=== PATIENT | male | born 1955 | race Two or more races ===

== ENCOUNTER → 2025-03-25 09:46 | Outpatient (REF) | payer MEDICARE, SELFPAY ==
--- OUTSIDE RECORDS SUMMARY | 2025-03-23 13:30 | XMS_ITS | Encounter Summary ---
Author Organization [facility] Address [address] [place] [address] Care Team Providers Care Reproduction Technician Name Role Phone Kenji Lacey MD Primary Care Provider [phone] Reason for Visit * Imaging (Routine) - Authorized Specialty Diagnoses / Procedures Referred By Contac t Referred To Contact Diagnoses Bilateral leg edema Procedures Vascular US duplex lower extremity venous insufficiency bilateral Vascular US duplex lower extremity venous insufficiency bilateral Kenji Lacey MD [address] [place] [id number] Phone: tel: fax: [facility] Referral ID Status Reason Start Date Expiration Date V isits Requested Visits Authorized [id number] Authorized 12/31/2024 12/31/2025 1 1 Encounter Details Date Type Department Care Team (Latest Contact Info) Description 03/23/2025 1:30 PM EST Ancillary Procedure [facility] [address] Jose Guadalupe [address] [place] [phone] Bilateral leg edema Social History Tobacco Use Types Packs/Day Years Used Date Smoking Tobacco: Never Smokeless Tobacco: Never Alcohol Use Standard Drinks/Week Comments Yes 0 (1 standard drink = 0.6 oz pur e alcohol) Sex and Gender Information Value Date Recorded Sex Assigned at Male 07/04/2024 9:23 AM EDT Legal Sex Male 2:21 AM EST Gender Identity Male 07/04/2024 9:23 AM EDT Sexual Orientation Straight 07/04/2024 9: 23 AM EDT documented as of this encounter Plan of Treatment Upcoming Encounters Date Type Department Care Team (Late st Contact Info) Description 07/13/2025 9:30 AM EDT Office Visit General Surgery [facility] [address] [place] [phone] Molina Bernabe MD [address] [place] [phone] documented as of this encounter Procedures Procedure Name Priority Date/Time Associated Diagnosis Comments VAS US DUPLEX LOWER EXT VENOUS INSUFFICIENCY BILATERAL Routine 03/23/2025 2:26 PM EST Bilateral leg edema documented in this encounter Results * Vascular US duplex lower extremity venous insufficiency bilateral (03/23/2025 2:26 PM EST) Left GSK lisseth 0.22 cm CV VAS LAB Left GSDC lisseth 0.15 cm CV VAS LAB Left GSMT lisseth 0.32 cm CV VAS LAB Left GSPC lisseth 0.21 cm CV VAS LAB Left GSPT lisseth 0.48 cm CV VAS LAB Left SFJ Diameter 0.66 cm CV VAS LAB Left SSMC lisseth 0.15 cm CV VAS LAB Left SSPC lisseth 0.16 cm CV VAS LAB Right GSK lisseth 0.26 cm CV VAS LAB Right GSDC lisseth 0.10 cm CV VAS LAB Right GSMT lisseth 0.30 cm CV VAS LAB Right GSPC lisseth 0.21 cm CV VAS LAB Right GSPT lisseth 0.45 cm CV VAS LAB Right SFJ Diameter 0.54 cm CV VAS LAB Right SSMC lisseth 0.17 cm CV VAS LAB Right SSPC lisseth 0.24 cm CV VAS LAB Anatomical Region Laterality Modality Vascular, Abdomen Ultrasound Narrative 03/23/2025 4:58 PM EST RIGHT. 1. No evidence of deep vein thrombosis. 2. The saphenofemoral junction, common femoral, femoral, and popliteal veins are competent. 3. No superficial venous thrombosis. 4. No venous reflux noted in the small saphenous vein. 5. No venous reflux noted in the greater saphenous vein. LEFT. 1. No evidence of deep vein thrombosis. 2. The saphenofemoral junction, common femoral, femoral, and popliteal veins are competent. 3. No superficial venous thrombosis. 4. No venous reflux noted in the small saphenous vein. 5. No venous reflux noted in the greater saphenous vein. Right Lower Venous No evidence of deep vein thrombosis in the common femoral, deep femoral, proximal femoral, mid femoral, distal femoral, popliteal, greater saphenous, small saphenous, posterior tibial and peroneal veins of the right leg. The vessels showed compressibility. Interrogation showed phasic and spontaneous Doppler signals. Right Venous Insufficiency Duplex The exam was performed with the patient in reverse Trendelenburg. Right saphenopopliteal junction was not identified. Left Lower Venous No evidence of deep vein thrombosis in the common femoral, deep femoral, proximal femoral, mid femoral, distal femoral, popliteal, greater saphenous, small saphenous, posterior tibial and peroneal veins of the left leg. The vessels showed compressibility. Interrogation showed phasic and spontaneous Doppler signals. Left Venous Insufficiency Duplex The exam was performed with the patient in reverse trendelenburg. Left saphenopopliteal junction was not identified. Atomizer Assembler Details A long scale, color and doppler analysis ultrasound was performed. During the study longitudinal and transverse views were obtained. Continuous wave doppler and pulsed wave doppler was performed. Overall the study quality was good. us Kenji Lacey MD CV VASCULAR PROCEDURES Verito l Result documented in this encounter Visit Diagnoses Diagnosis Bilateral leg edema Edema documented in this encounter Care Teams Reproduction Technician Relationship Specialty Start Date End Date Kenji Lacey MD [address] [facility] [place] [id number] PCP - General Internal Medicine 12/29/24 documented as of this encounter
--- OUTSIDE RECORDS SUMMARY | 2025-03-25 10:54 | XMS_ITS | Clinical Summary ---
Author Organization [facility] Address [address] [place] [address] Phone Care Team Providers Care Metal Loader Name Role Phone Kenji Lacey MD Primary Care Provider Allergies No known active allergies Medications pantoprazole (PROTONIX) 20 mg EC tablet Take 1 tablet (20 mg total) by mouth 1 (one) time each day before breakfast. Do not crush, chew, or split. 90 tablet Active diclofenac (VOLTAREN) 1 % topical gel Apply 2 g topically 2 (two) times a day. 60 g 1 Active Active Problems Problem Noted Date Diagnosed Date Bilateral inguinal hernia without obstruction or gangrene 01/22/2025 Prediabetes 01/22/2025 Hypertriglyceridemia 01/22/2025 Chronic pain of both knees 01/22/2025 Osteoarthritis of left knee 01/22/2025 Fall 01/22/2025 Syncope 01/22/2025 Elevated blood pressure reading 12/31/2024 Encounters Date Type Department Care Team Description 03/23/2025 1:30 PM EST Ancillary Procedure [facility] Cardiology [facility] [address] [phone] Bilateral leg edema 02/16/2025 10:00 AM EDT Ancillary Procedure [facility] Cardiology [facility] [address] [phone] Fall, subsequent encounter; Syncope, unspecified syncope type 01/23/2025 Results Follow-Up [address] [phone] Kenji Lacey MD 01/22/2025 11:14 AM EDT - 01/22/2025 11:59 PM EDT Hospital Encounter [address] [phone] Chronic pain of both knees Discharge Disposition: Home or Self Care 01/22/2025 10:30 AM EDT Office Visit [address] [phone] Kenji Lacey MD Bilateral inguinal hernia without obstruction or gangrene, recurrence not specified (Primary Dx); Elevated blood pressure reading; Prediabetes; Hypertriglyceridemia; Osteoarthritis of left knee, unspecified osteoarthritis type; Chronic pain of both knees; Fall, subsequent encounter; Syncope, unspecified syncope type 01/22/2025 Results Follow-Up [address] [phone] Kenji Lacey MD 01/12/2025 9:45 AM EDT Consult General Surgery [facility] [address] [facility] [address] [place] [phone] Molina Bernabe MD Bilateral inguinal hernia without obstruction or gangrene, recurrence not specified 01/09/2025 11:19 AM EDT - 01/09/2025 2:04 PM EDT Emergency [facility] [address] [place] [phone] Georgie Haddad MD Vasovagal syncope (Primary Dx); Vomiting, unspecified vomiting type, unspecified whether nausea present Discharge Disposition: Home or Self Care 01/09/[address] [phone] Kenji Lacey MD 01/09/2025 Nurse Triage [address] [phone] Kenji Lacey MD 12/31/2024 5:00 PM EDT Office Visit [address] [phone] Kenji Lacey MD Left inguinal hernia (Primary Dx); Alcohol use disorder; H. pylori infection; Prediabetes; Class 1 obesity due to excess calories with body mass index (BMI) of 31.0 to 31.9 in adult, unspecified whether serious comorbidity present; Elevated blood pressure reading; Swelling of lower extremity; Bilateral leg edema; Interrupted breathing; Fatty liver 12/29/[address] [phone] Kenji Lacey MD from Last 3 Months Immunizations Immunization Administration Dates Next Due Influenza trivalent, 0.5mL (Fluad) 65yo and olde r 01/22/2025 Td Tetanus diptheria, preser vative free (Tenivac) 7yo and older 01/22/2025 Surgical History Surgery Date Site/Laterality Comments COLONOSCOPY 03/22/12 PROCEDURE: HISTORICAL COLONOSCOPY; COMMENT: adenomas and tics; repeat in 5 yrs Medical History Medical History Date Comments GERD (gastroesophageal reflux disease) Family History Relation Name Status Comments Brother Alive [place] Daughter 1 Alive Daughter 2 Alive Daughter 3 Alive Daughter 4 Alive Father murder Mother Alive arthritis, DM, heart problems Sister 1 Alive arthritis Sister 2 Alive Sister 3 Alive Sister 4 Alive Son 1 Alive Son 2 Alive Social History Tobacco Use Types Packs/Day Years [...] Orientation Straight 07/04/2024 9: 23 AM EDT Obstetrics History Last Filed Vital Signs Vital Sign Reading Time Taken Comments Blood Pressure 132/79 01/22/2025 10:36 AM EDT Pulse 68 01/22/2025 10:36 AM EDT Temperature 36.4 C (97.5 F) 01/22/2025 10:36 AM EDT Respiratory Rate 12 01/22/2025 10:36 AM EDT Oxygen Saturation 99% 01/09/2025 1:30 PM EDT Inhaled Oxygen Concentration - - Weight 88 kg (194 lb) 01/22/2025 10:36 AM EDT Height 170.2 cm (5' 7 ) 01/22/2025 10:36 AM EDT Body Mass Index 30.38 01/22/2025 10:36 AM EDT Plan of Treatment Upcoming Encounters Date Type Department Care Team (Late st Contact Info) Description 07/13/2025 9:30 AM EDT Office Visit General Surgery - [address] [place] [address] Molina Bernabe MD [address] [place] [phone] Health Maintenance Due Date Last Done Comments Colorectal Cancer Screening: Colonoscopy 1955 Hepatitis A Vaccines (1 of 2 - Risk 2-dose series) 09/14/1975 Medicare Annual Wellness Visit 03/26/2022 Depression Screening 04/23/2024 Zoster Vaccines (2 of 2) 04/23/2025 07/19/2023 Pos tponed from 2023 (Patient Refused) COVID-19 Vaccine (3 - season) 2026 09/24/2020, 09/03/2020 Postponed from 12/22/2024 (Patient Refused) Falls Risk Assessment 01/22/2026 01/22/2025 Social Influencers of Health Screening 01/22/2026 01/22/2025 Cholesterol Screening (Lipid Panel) 01/01/2030 01/01/2025 RSV Immunization Adult Patients (1 - 1-dose 75+ series) 09/14/2031 DTaP,Tdap,and Td Vaccines (3 - Td or Tdap) 01/22/2035 01/22/2025, 10/19/2011 Hepatitis C Screening Completed 07/19/2023 Pneumococcal Vaccine: 50+ Years Completed 07/19/2023 Influenza Vaccine Completed 01/22/2025, , 03/24/2014, Additional history exists HIB Vaccines Aged Out No longer eligi ble based on patient's age to complete this topic HPV Vaccines Aged Out No longer eligi ble based on patient's age to complete this topic Hepatitis B Vaccines Aged Out No long er eligible based on patient's age to complete this topic IPV Vaccines Aged Out No longer eligi ble based on patient's age to complete this topic MMR Vaccines Aged Out No longer eligi ble based on patient's age to complete this topic Meningococcal ACWY Vaccine Aged Out N o longer eligible based on patient's age to complete this topic Meningococcal B Vaccine Aged Out No l onger eligible based on patient's age to complete this topic RSV Immunization Patients Under 20 months Aged Out No longer eligible based on patient's age to complete this topic Varicella Vaccines Aged Out No longer eligible based on patient's age to complete this topic Procedures Procedure Name Priority Date/Time Associated Diagnosis Comments VAS US DUPLEX LOWER EXT VENOUS INSUFFICIENCY BILATERAL Routine 03/23/2025 2:26 PM EST Bilateral leg edema CARDIAC HOLTER MONITOR (REPORT GENERATED IN HOUSE) Routine 02/16/2025 10:00 AM EDT Fall, subsequent encounter Syncope, unspecified syncope type XR KNEE 4+ VIEWS BILAT Routine 11:35 AM EDT Chronic pain of both knees HEMOGLOBIN A1C Routine 01/20/2025 11:00 AM EDT Prediabetes ECG ANNOTATED 01/10/2025 XR CHEST 2 VIEWS STAT 01/09/2025 1:25 PM EDT TROPONIN I HIGH SENSITIVITY Timed 01/09/2025 12:47 PM EDT ECG 12-LEAD STAT 01/09/2025 12:[address] HEAD WO CONTRAST STAT 01/09/2025 1 2:08 PM EDT ECG 12-LEAD STAT 01/09/2025 11:43 AM EDT CBC WITH AUTO DIFFERENTIAL STAT 01/09/2025 11:36 AM EDT B-TYPE NATRIURETIC PEPTIDE STAT 01/09/2025 11:36 AM EDT MAGNESIUM STAT 01/09/2025 11:36 AM EDT LIPASE STAT 01/09/2025 11:36 AM EDT COMPREHENSIVE METABOLIC PANEL STAT 01/09/2025 11:36 AM EDT CBC AND DIFFERENTIAL STAT 01/09/2025 11:36 AM EDT TROPONIN I HIGH SENSITIVITY Timed 01/09/2025 11:36 AM EDT B-TYPE NATRIURETIC PEPTIDE Routine 01/01/2025 9:22 AM EDT Swelling of lower extremity HELICOBACTER PYLORI BREATH TEST Routine 01/01/2025 9:22 AM EDT H. pylori infection LIPID PANEL WITH REFLEX TO DIRECT LDL Routine 01/01/2025 9:22 AM EDT Fatty liver from Last 3 Months Results * Vascular US duplex lower extremity [...] trendelenburg. Left saphenopopliteal junction was not identified. Machine Binder Stripper Details A long scale, color and doppler analysis ultrasound was performed. During the study longitudinal and transverse views were obtained. Continuous wave doppler and pulsed wave doppler was performed. Overall the study quality was good. us Kenji Lacey MD CV VASCULAR PROCEDURES Verito uhgh Result * CARDIAC HOLTER MONITOR (REPORT GENERATED IN HOUSE) (02/16/2025 10:00 AM EDT) Anatomical Region Laterality Modality Cardiac Diagnost ic Narrative 02/19/2025 3:32 PM EDT [facility] DIAGNOSTIC [facility]ING DEPARTMENT [address] [facility], [id number], [place] [address] TEL: FAX: Type of Test: 48 Hour Holter Monitor Date of Test: 02/16/2025 Ordering Provider: Kenji Lacey MD Reason for Test: Fall, subsequent encounter; Syncope, unspecified syncope type PVCA [place] Findings: 1: Predominant rhythm was Normal Sinus Rhythm. 2: Occasional PACs. Rare aberrant beats, atrial pairs, atrial bigeminy, and one 5-beat atrial run with rate of 128 bpm. 3: Rare PVCs. 4: One pause over 3.0 seconds noted, longest R-R was 3.6 seconds at 1:34 AM. 5: Diary returned with no symptoms noted. Impression: The predominant rhythm was sinus rhythm. There were occasional PACs the predominant rhythm was sinus rhythm with occasional PACs or short atrial runs. There was a 3.6 second pause at 1:34 AM consistent with hyper vagotonia. No daytime pauses noted. us Kenji Lacey MD CV CARDIAC SERVICES PROCEDU RES Final Result * XR Knee 4+ Views bilat (01/22/2025 11:35 AM EDT) Anatomical Region Laterality Modality Lower Extremities, Knee Bilateral [facility] 01/23/2025 1:05 AM EDT Narrative 01/23/2025 1:07 AM EDT Bilateral knees, 4 views of each. History chronic pain. Comparison with prior study of the left knee from 09/14/2023. There is narrowing of the joint space medially on the left and laterally on the right. There are small osteophytes in the intercondylar notch on the right. There are degenerative changes in the patellofemoral compartments bilaterally. There is no joint effusion. CONCLUSIONS: No fractures or dislocations. Degenerative changes as detailed. -------- FINAL REPORT -------- Dictated By: Dee Pineda Dictated Date: 01/23/2025 01:05 ET Assigned Physician: Dee Pineda Reviewed and Electronically Signed By: Dee Pineda Signed Date: 01/23/2025 01:07 ET Workstation ID: [id number] Transcribed By: Self Edit Transcribed Date: 01/23/2025 01:05 ET Procedure Note Dee Pineda MD - 01/23/2025 Bilateral knees, 4 views of each. History chronic pain. Comparison with prior study of the left knee from 09/14/2023. There is narrowing of the joint space medially on the left and laterallyon the right. There are small osteophytes in the intercondylar notch onthe right. There are degenerative changes in the patellofemoralcompartments bilaterally. There is no joint effusion. CONCLUSIONS: No fractures or dislocations. Degenerative changes asdetailed. -------- FINAL REPORT -------- Dictated By: Dee Pineda Dictated Date: 01/23/2025 01:05 ET Assigned Physician: Dee Pineda Reviewed and Electronically Signed By: Dee Pineda Signed Date: 01/23/2025 01:07 ET Workstation ID: [id number] Transcribed By: Self Edit Transcribed Date: 01/23/2025 01:05 ET Kenji Lacey MD IMG XR PROCEDURES Final Res ult * Hemoglobin A1c (01/20/2025 11:00 AM EDT) Hemoglobin A1C 5.6 <6.5 % LAB CHEMISTRY METHOD 01/20/2025 10:07 PM EDT [facility] Mean Bld Glu Estim. 114 mg/dL LAB CHEMISTRY METHOD 01/20/2025 10:07 PM EDT [facility] Blood Venous blood specimen / Unknown Venipuncture / Unknown 01/20/2025 11:00 AM EDT 01/20/2025 11:00 AM EDT Kenji Lacey MD LAB BLOOD ORDERABLES Final Result [facility] [address] [place] [address], [place] [phone] * ECG-Annotated (01/10/2025) us Provider Onbase ECG ORDERABLES Final Result * XR Chest 2 Views (01/09/2025 1:25 PM EDT) Anatomical Region Laterality Modality Body Radiographic Jeni ging 01/09/2025 2:58 PM EDT Impressions 01/09/2025 2:59 PM EDT FINDINGS/IMPRESSION: Hypoventilatory examination with bronchovascular crowding. No consolidation or congestive heart failure. -------- FINAL REPORT -------- Dictated By: Gisselle Lacey Dictated Date: 01/09/2025 14:58 ET Assigned Physician: Gisselle aLcey Reviewed and Electronically Signed By: Gisselle Lacey Signed Date: 01/09/2025 14:59 ET Workstation ID: [id number] Transcribed By: Self Edit Transcribed Date: 01/09/2025 14:58 ET Narrative 01/09/2025 2:59 PM EDT XR CHEST 2 VIEWS INDICATION: chest pain TECHNIQUE: XR CHEST 2 VIEWS COMPARISON: No priors available. Procedure Note Gisselle Lacey MD - 01/09/2025 XR CHEST 2 VIEWS INDICATION: chest pain TECHNIQUE: XR CHEST 2 VIEWS COMPARISON: No priors available. IMPRESSION: FINDINGS/IMPRESSION: Hypoventilatory examination with bronchovascularcrowding. No consolidation or congestive heart failure. -------- FINAL REPORT -------- Dictated By: Gisselle Lacey Dictated Date: 01/09/2025 14:58 ET Assigned Physician: Gisselle Lacey Reviewed and Electronically Signed By: Gisselle Lacey Signed Date: 01/09/2025 14:59 ET Workstation ID: [id number] Transcribed By: Self Edit Transcribed Date: 01/09/2025 14:58 ET Georgie Haddad MD IMG XR PROCEDURES Final Result * Troponin I high sensitivity (01/09/2025 12:47 PM EDT) Only the most recent of2 resultswithin the time period is included. [facility] High Sensitivity Troponin I 4 <=79 ng/L LAB CHEMISTRY METHOD 01/09/2025 1:46 PM EDT [facility] Blood Venous blood specimen / Unknown Venipuncture / Unknown 01/09/2025 12:47 PM EDT 01/09/2025 1:10 PM EDT Narrative [facility] - 01/09/2025 1:46 PM EDT High levels of biotin in samples may falsely decrease hsTroponin values. Use caution when interpreting hsTroponin results in patients taking biotin who exhibit renal impairment (eGFR <60) or in patients taking more than 20 mg/day of biotin. us Georgie Haddad MD LAB BLOOD ORDERABLES Final Resul t [facility] [address] [place] [address], [place] [phone] * ECG 12 lead (01/09/2025 12:40 PM EDT) Only the most recent of2 resultswithin the time period is included. [facility] Ventricular Rate ECG 80 BPM GEMUSE Atrial Rate 80 BPM GEMUSE P-R Interval 152 ms GEMUSE QRS Duration 102 ms GEMUSE Q-T Interval 372 ms GEMUSE QTc 429 ms GEMUSE P Wave [place] 31 degrees GEMUSE R [place] -36 degrees GEMUSE T [place] 36 degrees GEMUSE ECG Interpretation Normal sinus rhythm Left axis deviation Pulmonary disease pattern Abnormal ECG When compared with ECG of 09-JAN-2025 11:43, No significant change was found Confirmed by MD Rodney, [place] ([id number]) on 01/09/2025 9:59:06 PM GEMUSE 01/09/2025 12:4 0 PM EDT 01/09/2025 9:59 PM EDT us Georgie Haddad MD ECG ORDERABLES Final Result [facility] * CT Head wo Contrast (01/09/2025 12:08 PM EDT) Anatomical Region Laterality Modality Head and Neck Computed Tomogra phy 01/09/2025 12:4 3 PM EDT Impressions 01/09/2025 12:45 PM EDT No acute intracranial abnormality. -------- FINAL REPORT -------- Dictated By: Gisselle Lacey Dictated Date: 01/09/2025 12:43 ET Assigned Physician: Gisselle Lacey Reviewed and Electronically Signed By: Gisselle Lacey Signed Date: 01/09/2025 12:45 ET Workstation ID: [id number] Transcribed By: Self Edit Transcribed Date: 01/09/2025 12:43 ET Narrative 01/09/2025 12:45 PM EDT PROCEDURE: HEAD CT INDICATION: Head trauma, minor (Age >= 65y) TECHNIQUE: CT of the head without intravenous contrast. Multiplanar reformats. The examination was performed utilizing dose reduction techniques. Total DLP 717 COMPARISON: No priors available. FINDINGS: No acute territorial infarct, mass effect, or intracranial hemorrhage. Mild scattered periventricular and subcortical white matter hypodensities are most likely related to chronic small vessel ischemic change. No hydrocephalus. Visualized paranasal sinuses are clear. Mastoid air cells are clear. No calvarial fracture. Remote right lamina papyracea fracture Procedure Note Gisselle Lacey MD - 01/09/2025 PROCEDURE: HEAD CT INDICATION: Head trauma, minor (Age >= 65y) TECHNIQUE: CT of the head without intravenous contrast. Multiplanarreformats. The examination was performed utilizing dose reductiontechniques. Total DLP 717 COMPARISON: No priors available. FINDINGS: No acute territorial infarct, mass effect, or intracranial hemorrhage. Mild scattered periventricular and subcortical white matter hypodensitiesare most likely related to chronic small vessel ischemic change. No hydrocephalus. Visualized paranasal sinuses are clear. Mastoid air cells are clear. No calvarial fracture. Remote right lamina papyracea fracture IMPRESSION: No acute intracranial abnormality. -------- FINAL REPORT -------- Dictated By: Gisselle Lacey Dictated Date: 01/09/2025 12:43 ET Assigned Physician: Gisselle Lacey Reviewed and Electronically Signed By: Gisselle Lacey Signed Date: 01/09/2025 12:45 ET Workstation ID: [id number] Transcribed By: Self Edit Transcribed Date: 01/09/2025 12:43 ET us Georgie Haddad MD IMG CT PROCEDURES Final Result * CBC auto differential (01/09/2025 11:36 AM EDT) WBC 7.7 4.8 - 10.8 K/mcL LAB HEMETOLOGY [facility]25 [facility] RBC 5.20 4.50 - 5.50 M/mcL LAB HEMETOLOGY METHOD 01/09/2025 11:[address] [facility] Hemoglobin 14.8 13.5 - 17.5 g/dL LAB HEMETOLOGY METHOD 01/09/2025 11:[address] [facility] Hematocrit 44.8 42.0 - 54.0 % LAB HEMETOLOGY METHOD 01/09/2025 11:[address] [facility] MCV 85.5 79.0 - 98.0 FL LAB HEMETOLOGY METHOD 01/09/2025 11:[address] [facility] MCH 28.2 27.0 - 32.0 pcg LAB HEMETOLOGY METHOD 01/09/2025 11:[address] [facility] MCHC 33.0 32.0 - 37.0 g/dL LAB HEMETOLOGY METHOD 01/09/2025 11:[address] [facility] RDW 14.2 11.0 - 15.0 % LAB HEMETOLOGY METHOD 01/09/2025 11:[address] [facility] Platelets 195 130 - 400 K/mcL LAB HEMETOLOGY METHOD 01/09/2025 11:[address] [facility] MPV 10.4 7.0 - 11.0 FL LAB HEMETOLOGY METHOD 01/09/2025 11:[address] [facility] NRBC 0.0 <1.0 % LAB HEMETOLOGY METHOD 01/09/2025 11:[address] [facility] NRBC Absolute 0.00 <0.10 K/mcL LAB HEMETOLOGY METHOD 01/09/2025 11:[address] [facility] Neutrophils Relative 45.0 % LAB HEMETOLOGY METHOD 01/09/2025 11:[address] [facility] Lymphocytes Relative 43.9 % LAB HEMETOLOGY METHOD 01/09/2025 11:[address] [facility] Monocytes Relative 8.5 % LAB HEMETOLOGY METHOD 01/09/2025 11:[address] [facility] Eosinophils Relative 1.4 % LAB HEMETOLOGY METHOD 01/09/2025 11:[address] [facility] Basophils Relative 0.8 % LAB HEMETOLOGY METHOD 01/09/2025 11:[address] [facility] Immature Granulocytes Relative 0.4 % LAB HEMETOLOGY METHOD 01/09/2025 11:[address] [facility] Neutrophils Absolute 3.45 1.50 - 7.00 K/mcL LAB HEMETOLOGY METHOD 01/09/2025 11:[address] [facility] Lymphocytes Absolute 3.36 1.00 - 5.00 K/mcL LAB HEMETOLOGY METHOD 01/09/2025 11:[address] [facility] Monocytes Absolute 0.65 0.20 - 1.00 K/mcL LAB HEMETOLOGY METHOD 01/09/2025 11:[address] [facility] Eosinophils Absolute 0.11 0.00 - 0.50 K/mcL LAB HEMETOLOGY METHOD 01/09/2025 11:[address] [facility] Basophils Absolute 0.06 0.00 - 0.20 K/[facility] LAB HEMETOLOGY METHOD 01/09/2025 11:56 AM EDT [facility] Immature Granulocytes Absolute 0.03 0.00 - 0.03 K/[facility] LAB HEMETOLOGY METHOD 01/09/2025 11:56 AM EDT [facility] Blood Venous blood specimen / Unknown Venipuncture / Unknown 01/09/2025 11:36 AM EDT 01/09/2025 11:51 AM EDT us Georgie Haddad MD LAB BLOOD ORDERABLES Final Resul t Performing Organization Address City/[facility]/ZIP Co de Phone Number [facility] [address] [place] [address], [place] [phone] * B-type natriuretic peptide (01/09/2025 11:36 AM EDT) Only the most recent of2 resultswithin the time period is included. BNP 6 <=100 pcg/mL LAB CHEMISTRY METHOD 01/09/2025 12:57 PM EDT [facility] Blood Venous blood specimen / Unknown Venipuncture / Unknown 01/09/2025 11:36 AM EDT 01/09/2025 11:51 AM EDT us Georgie Haddad MD LAB BLOOD ORDERABLES Final Resul t Performing Organization Address City/[facility]/ZIP Co de Phone Number [facility] [address] [place] [address], [place] [phone] * Magnesium (01/09/2025 11:36 AM EDT) Magnesium 2.4 1.9 - 2.6 mg/dL LAB CHEMISTRY METHOD 01/09/2025 12:19 PM EDT [facility] Blood Venous blood specimen / Unknown Venipuncture / Unknown 01/09/2025 11:36 AM EDT 01/09/2025 11:51 AM EDT us Georgie Haddad MD LAB BLOOD ORDERABLES Final Resul t Performing Organization Address [facility]/ZIP Co de Phone Number [facility] [address] [place] [address], [place] [phone] * Lipase (01/09/2025 11:36 AM EDT) Pathologist [facility] Lipase 32 13 - 75 unit/L LAB CHEMISTRY METHOD 01/09/2025 12:19 PM EDT [facility] Blood Venous blood specimen / Unknown Venipuncture / Unknown 01/09/2025 11:36 AM EDT 01/09/2025 11:51 AM EDT us Georgie Haddad MD LAB BLOOD ORDERABLES Final Resul t Performing Organization Address [facility] de Phone Number [facility] [address] [place] [address], [place] [phone] * (ABNORMAL) Comprehensive metabolic panel (01/09/2025 11:36 AM EDT) [facility] Sodium 136 133 - 145 mmol/L LAB CHEMISTRY METHOD 01/09/2025 12:[address] [facility] Potassium 4.6 3.5 - 5.5 mmol/L LAB CHEMISTRY METHOD 01/09/2025 12:[address] [facility] Chloride 102 96 - 110 mmol/L LAB CHEMISTRY METHOD 01/09/2025 12:[address] [facility] CO2 29 21 - 32 mmol/L LAB CHEMISTRY METHOD 01/09/2025 12:[address] [facility] Anion Gap 5 3 - 11 LAB CHEMISTRY METHOD 01/09/2025 12:[address] [facility] Glucose 105(H) 70 - 100 mg/dL LAB CHEMISTRY METHOD 01/09/2025 12:[address] [facility] BUN 22 5 - 25 mg/dL LAB CHEMISTRY METHOD 01/09/2025 12:[address] [facility] Creatinine 1.06 0.70 - 1.30 mg/dL LAB CHEMISTRY METHOD 01/09/2025 12:[address] [facility] eGFR 76 >=60 mL/min/1. 73m2 LAB CHEMISTRY METHOD 01/09/2025 12:[address] [facility] Comment:Calculation based on the Chronic Kidney Disease Epidemiology Collaboration (CKD-EPI) equation refit without adjustment for race. BUN/Creatinine Ratio 20.8 LAB CHEMISTRY METHOD 01/09/2025 12:[address] [facility] Calcium 8.8 8.5 - 10.5 mg/dL LAB CHEMISTRY METHOD 01/09/2025 12:[address] [facility] AST (SGOT) 35 10 - 42 unit/L LAB CHEMISTRY METHOD 01/09/2025 12:[address] [facility] ALT (SGPT) 46 10 - 60 unit/L LAB CHEMISTRY METHOD 01/09/2025 12:[address] [facility] Alkaline Phosphatase 100 42 - 121 unit/L LAB CHEMISTRY METHOD 01/09/2025 12:[address] [facility] Total Protein 7.2 6.0 - 8.0 g/dL LAB CHEMISTRY METHOD 01/09/2025 12:[address] [facility] Albumin 4.1 3.2 - 5.0 g/dL LAB CHEMISTRY METHOD 01/09/2025 12:[address] [facility] Total Bilirubin 0.4 0.0 - 1.4 mg/dL LAB CHEMISTRY METHOD 01/09/2025 12:[address] [facility] Blood Venous blood specimen / Unknown Venipuncture / Unknown 01/09/2025 11:36 AM EDT 01/09/2025 11:51 AM EDT Georgie Haddad MD LAB BLOOD ORDERABLES Final Resul t Performing Organization Address City/[facility]/ZIP Co de Phone Number [facility] [address] [place] [address], [place] [phone] * (ABNORMAL) Lipid panel with reflex to direct LDL (01/01/2025 9:22 AM EDT) Cholesterol 187 0 - 200 mg/dL LAB CHEMISTRY METHOD 01/01/2025 2:05 PM EDT [facility] Triglycerides 198(H) 0 - 150 mg/dL LAB CHEMISTRY METHOD 01/01/2025 2:05 PM EDT [facility] HDL 47 >=40 mg/dL LAB CHEMISTRY METHOD 01/01/2025 2:05 PM EDT [facility] LDL Calculated 100 0 - 100 mg/dL LAB CHEMISTRY METHOD 01/01/2025 2:05 PM EDT [facility] Comment:Estimated LDL Calcul ated using equation: Total cholesterol - HDL cholesterol - (Triglycerides/5) VLDL Cholesterol René 39.6 mg/dL LAB CHEMISTRY METHOD 01/01/2025 2:05 PM EDT [facility] Non HDL Chol. (LDL+VLDL) 140 <145 mg/dL LAB CHEMISTRY METHOD 01/01/2025 2:05 PM EDT [facility] Chol/HDL Ratio 4.0 0.0 - 4.4 LAB CHEMISTRY METHOD 01/01/2025 2:05 PM EDT [facility] Blood Venous blood specimen / Unknown Venipuncture / Unknown 01/01/2025 9:22 AM EDT 01/01/2025 9:22 AM EDT Kenji Lacey MD LAB BLOOD ORDERABLES Final Result [facility] [address] [place] [address], [place] [phone] * Helicobacter pylori breath test (01/01/2025 9:22 AM EDT) H Pylori Breath Test Negative Negative LAB CHEMISTRY METHOD 01/01/2025 11:18 AM EDT [facility] Breath Oral cavity structure / Unknown Non-blood Collection / Unknown 01/01/2025 9:22 AM EDT 01/01/2025 9:22 AM EDT us Kenji Lacey MD LAB BODY FLUIDS AND STOOLS ORDERABLES Final Result [facility] [address] [place] [address], [place] [phone] from Last 3 Months Insurance MEDICAID - [place] [employer] MEDICARE Advance Directives Documents on File Type Date Recorded Patient Warehouse And Receiving Supervisor Expl anation Power of Object Oriented Developer 07/04/2024 9:26 AM Care Teams Metal Loader Relationship Specialty Start Date End Date Kenji Lacey MD [address] [place] [address] PCP - General Internal Medicine 12/29/24
--- OUTSIDE RECORDS SUMMARY | 2025-03-25 10:54 | XMS_ITS | Encounter Summary ---
Author Organization [employer] Address [address] [place] [address] Care Team Providers Care Phlebotomy Technologist Name Role Phone Kenji Lacey MD Primary Care Provider Encounter Details Date Type Department Care Team (Late Contact Info) Description 01/22/2025 Results Follow-Up Adult Medicine [facility] [address] [place] [phone] Kenji Lacey MD [address] [place] [address] Social History Tobacco Use Types Packs/Day Years [...] Encounters Date Type Department Care Team (Late Contact Info) Description 07/13/2025 9:30 AM EDT Office Visit General Surgery [address] [place] [address] Molina Bernabe MD [address] [place] [phone] documented as of this encounter Visit Diagnoses Not on filedocumented in this encounter Care Teams Phlebotomy Technologist Relationship Specialty Start Date End Date Kenji Lacey MD [address] [place] [address] PCP - General Internal Medicine 12/29/24 documented as of this encounter
--- OUTSIDE RECORDS SUMMARY | 2025-03-25 10:54 | XMS_ITS | Encounter Summary ---
Author Organization [employer] Address [address] [place] [address] Care Team Providers Care Electric Razor Mechanic Name Role Phone Kenji Lacey MD Primary Care Provider [phone] Reason for Visit * Reason Onset Date Comments Syncope 01/09/2025 Encounter Details Date Type Department Care Team (Late st Contact Info) Description 01/09/2025 Nurse Triage Adult Medicine [address] [phone] Kenji Lacey MD [address] [place] [phone] Social History Tobacco Use Types Packs/Day Years [...] AM EDT documented as of this encounter Functional Status * Calculated C-SSRS Risk Score (Lifetime/Recent) Answer Date of Assessment Author No Risk Indicated 01/09/2025 11:02 AM EDT Geovanna Zaragoza RN * Lillian Suicide Severity Rating Scale (Screener/Recent Self-Report) Question Answer Date of Assessment Author 1. Mikal to be (Past 1 Month) No 025 11:02 AM EDT Geovanna Irving, RORY 2. Non-Specific Active Suici paris Thoughts (Past 1 Month) No 01/09/2025 11:02 AM EDT Mimi Irving, RORY 6. Suicidal Behavior (Lifetime) No 11:02 AM EDT Geovanna Irving, RN documented as of this encounter Progress Notes * Kassidy Michael RN - 01/09/2025 10:40 AM EDT Pt was using the bathroom, he felt nauseated and vomited, hear a loud noise and found pt on the floor unresponsive he woke up after a few minutes, pt did not go to the ed daughter will take pt to the ed now * Joanna Maribel - 01/09/2025 10:05 AM EDT Patient call requires triage: Symptoms patient is presenting: c/o syncope, no known injury. Did not go to ER How long has patient had these symptoms?: 01/08/25 For ALL patients calling to schedule any appointment (routine, sick visit, follow up, consult, etc.) in the outpatient setting please ask the following questions: Do you have fever of higher than 101, sore throat with difficulty swallowing or severe shortness ofbreath? no If YES to any of these above symptoms, send a message to triage and do not book. Red dot. If no, an audio or video visit should be booked. Have you had close contact with someone with Coronavirus in the last 14 days? no Have you traveled abroad? no Have you traveled recently to another state outside of [place], [place], [place], [place], [place], [place], [place]? no o If yes, did you quarantine for 14 days or have a negative covid test? no If yes to any of the above, patient is not to be scheduled in office until after 14 day quarantine or negative covid test. If pain or injury related was it due to an accident at work or from a motor vehicle accident? If yes, date of accident/Injury: No If yes, gather 3rd green party insurance information [employer] Party Information: not applicable PCP: Kenji Lacey MD Payor: [facility] MEDICARE / Plan: [facility] MEDICARE COMPLETE / Product Type: *No Product type* / documented in this encounter Plan of Treatment Upcoming Encounters Date Type Department Care Team (Late st Contact Info) Description 07/13/2025 9:30 AM EDT Office Visit General Surgery - [place] [address] [facility] [address] [place] [phone] Molina Bernabe MD [address] [place] [phone] documented as of this encounter Visit Diagnoses Not on filedocumented in this encounter Care Teams Electric Razor Mechanic Relationship Specialty Start Date End Date Kenji Lacey MD [address] [place] [address] PCP - General Internal Medicine 12/29/24 documented as of this encounter
== END ==
LOC: HO.SL 09:46
PROVIDERS: Visit Provider Internal Medicine
DX: G47.33 Obstructive sleep apnea (adult) (pediatric) (principal); E66.811 Obesity, class 1; R06.89 Other abnormalities of breathing; R06.83 Snoring; R40.0 Somnolence
CPT/HCPCS: 95806

== ENCOUNTER → 2025-03-25 21:00 | Outpatient (BNV) | payer MEDICARE, SELFPAY | PROVIDERS: Visit Provider Internal Medicine | DX: G47.33 Obstructive sleep apnea (adult) (pediatric) (principal) | CPT/HCPCS: 95806 ==